=== PATIENT | male | born 1945 | race Caucasian/White ===

== ENCOUNTER → 2016-06-17 | Outpatient (CLI) | payer MEDICARE ==
[~2016-06-17] MED LIST: APIX5TAB PO; ATOR10TA15 PO; AUGM500T7 PO; BENZ100 PO; CALC1TAB87 PO; CIPR-9 PO; DILT31TA PO; MULT-65 PO; PERC5TAB12 PO; PRED20 PO; PRIL20CA9 PO; PROB500T8 PO; SYMB160A INH; ULTR50TA5 PO; WALKER WHEELS/F1 MIS; WHEEMIS3
--- NOTE | 2016-06-22 09:30 | RSPPFT ---
DATE OF PROCEDURE: 06/17/16 COMMENTS: VOLUMES DYNAMIC: FVC and FEV1 mildly reduced. STATIC: RV mildly increased; VTG and TLC normal. FLOWS: FEV1% mildly reduced; FEF 25-75 severely reduced. DIFFUSION: Normal. FLOW VOLUME LOOP: Pattern of variable intrathoracic airways obstruction. IMPRESSION: Mild obstructive ventilatory defect with a good response to bronchodilator. Airways resistance is increased. Diffusion is normal.
== END ==
LOC: HRSP 08:52
PROVIDERS: ATTEND Internal Medicine
DX: J45.909 Unspecified asthma, uncomplicated (principal)
CPT/HCPCS: 94060; 94726; 94729; 95012